=== PATIENT | male | born 1940 | race Caucasian/White ===

== ENCOUNTER 2022-06-04 11:17 | Day surgery (SDC) | payer OTHER ==
[~2022-06-04] VITALS: Ht 182.9 cm; Wt 79.3 kg
[~2022-06-04 11:17] MED LIST: ALBU90OI INH; AMLO5 PO; BUDE6HFA; CHLO25B PO; CYAN100 PO; DOCU100 PO; FOLI1 PO; FURO40 PO; GUAI600T33 PO; HYDACE10B PO; LAVAP17G PO; LEVSOD100 PO; LORA.5 PO; Nitroglycerin0.4 MG SL; OPTLUBOPO BOTHEYES; POTCHL20ER PO; Protonix40 MG PO; TIOT18
--- NOTE | 2022-06-04 13:11 | NUR ---
06/04/22 1311 PEEWEE EVANS T: 1250, P:[id number] ADRIÁN @ [id number] ZAVALETA
== END 2022-06-04 14:24 | disposition home or self-care (01) ==
LOC: ORSCSDS 11:17
PROVIDERS: Ophthalmology
PROC: 08RJ3JZ Replacement of Right Lens with Synthetic Substitute, Percutaneous Approach (ICD-10-PCS; principal; 2022-06-04 12:30)
DX: H25.11 Age-related nuclear cataract, right eye (principal); J44.9 Chronic obstructive pulmonary disease, unspecified; E78.5 Hyperlipidemia, unspecified; E03.9 Hypothyroidism, unspecified; Z79.82 Long term (current) use of aspirin; Z79.51 Long term (current) use of inhaled steroids; Z79.899 Other long term (current) drug therapy; Z99.81 Dependence on supplemental oxygen; Z87.891 Personal history of nicotine dependence; F03.90 Unspecified dementia, unspecified severity, without behavioral disturbance, psychotic disturbance, mood disturbance, and anxiety
CPT/HCPCS: J2001; J2250; J3010; J3301; J7040; V2632

== ENCOUNTER 2022-06-27 09:52 | Day surgery (SDC) | payer OTHER ==
[~2022-06-27] VITALS: Ht 182.9 cm; Wt 77.3 kg
--- NOTE | 2022-06-27 11:20 | NUR ---
06/27/22 1120 VELIA BAILEY PT DECLINED DRINK OR SNACK
== END 2022-06-27 11:30 | disposition home or self-care (01) ==
LOC: ORSCSDS 09:52
PROVIDERS: Ophthalmology
PROC: 08RK3JZ Replacement of Left Lens with Synthetic Substitute, Percutaneous Approach (ICD-10-PCS; principal; 2022-06-27 11:00)
DX: H25.12 Age-related nuclear cataract, left eye (principal); Z96.1 Presence of intraocular lens; J44.9 Chronic obstructive pulmonary disease, unspecified; Z87.891 Personal history of nicotine dependence; F03.90 Unspecified dementia, unspecified severity, without behavioral disturbance, psychotic disturbance, mood disturbance, and anxiety; Z99.81 Dependence on supplemental oxygen; Z79.82 Long term (current) use of aspirin; Z79.899 Other long term (current) drug therapy
CPT/HCPCS: J2001; J2250; J3010; J3301; V2632